=== PATIENT | female | born 1975 | race Caucasian/White ===

== ENCOUNTER → 2018-01-26 | Day surgery (SDC) | payer OTHER ==
[~2018-01-26] MED LIST: Bacitracin Zinc Ointment 30 gm TUBE ONE; Fentanyl 100 MCG/2 ML VIAL ONE; HYDROcodone/Acetaminophen 5/325 mg Tablet ONE; Lidocaine 1% w/Epinephrine 1:100K 30 ML VIAL ONE; Midazolam HCl 2 mg/2 ml Vial ONE; Oxymetazoline HCl 0.05% ( 15 ML ) ONE
--- NOTE | 2018-01-26 12:24 | OP ---
DATE OF PROCEDURE: 01/26/2018 SURGEON: Dr. Jon Smith PREOPERATIVE DIAGNOSES: 1. Displaced nasal fracture. 2. Hypertrophic inferior turbinates. 3. Deviated septum. POSTOPERATIVE DIAGNOSES: 1. Displaced nasal fracture. 2. Hypertrophic inferior turbinates. 3. Deviated septum. PROCEDURE PERFORMED: 1. Closed reduction of displaced nasal fracture with internal and external splinting 2. Bilateral nasal endoscopy with submucosal resection of inferior turbinates. PROCEDURE IN DETAIL: After consent was obtained, the patient was identified, brought to the OR and p laced on the table in supine position. General laryngeal mask anesthesia was obtained. The patient was positioned for surgery. The nasal bones were reduced using a nasal reduction forceps and secured in place with Gelfoam intranasally. We then infiltrated the inferior turbinates and then a 1% lidoc cat with 1:100,000 epinephrine under endoscopic visualization, we reduce the mass of the turbinate submucosally using a [employer] shaver turbinate blade. We then placed cottonoids in the nose and con tinue to address the displaced nasal bone. Once reduced, the nasal bones were kept in place with Gel foam intranasally followed by [place] splints suture secured to the caudal septum. We then placed an e xternal splint, [place] splint in standard fashion. The cottonoids were then removed. The patient wa s awakened, extubated, and taken to recovery where she remained in stable condition prior to discharg e home.
== END ==
LOC: SDC 08:21
PROVIDERS: ATTEND Specialist
PROC: 0NSBXZZ Reposition Nasal Bone, External Approach (ICD-10-PCS; principal; 2018-01-26)
PROC: 09BL8ZZ Excision of Nasal Turbinate, Via Natural or Artificial Opening Endoscopic (ICD-10-PCS; principal; 2018-01-26)
DX: S02.2XXA Fracture of nasal bones, initial encounter for closed fracture (principal); J34.3 Hypertrophy of nasal turbinates; J34.2 Deviated nasal septum
CPT/HCPCS: 36415; 85014; J2001; J2250; J3010